=== PATIENT | female | born 1960 | race Caucasian/White ===

== ENCOUNTER 2018-09-28 00:27 | Emergency (ER) | payer MEDICAID, SELFPAY ==
[2018-09-28 00:28] VITALS: BP 129/87; PULSE 79; RESP 16; TEMP 36.4; O2SAT 98; BMI 23.6
--- NOTE | 2018-09-28 00:44 | ED.RN ---
PT IS INTOXICATED AND A POOR HISTORIAN.
--- NOTE | 2018-09-28 00:45 | CT_ITS ---
STUDY: CT CERVICAL SPINE WITHOUT CONTRAST REASON FOR EXAM: Female, 58 years old. Neck pain after fall. RADIATION DOSAGE (If Supplied By Facility): CTDIvol = ( 12.45 ) mGy, DLP = ( 258.92 ) mGycm TECHNIQUE: High resolution transaxial imaging was performed without contrast material. Sagittal and coronal images were reconstructed. Individualized dose optimization techniques were used for this CT. COMPARISON: None FINDINGS: Normal craniovertebral junction. Normal anterior atlantoaxial articulation. Normal odontoid process. Normal cervical lordosis. Normal vertebral bodies and posterior osseous elements. C2-3: Normal endplates. Normal disc height and morphology. Normal central canal and intervertebral neuroforamina. C3-4: Normal endplates. Normal disc height and morphology. Normal central canal and intervertebral neuroforamina. C4-5: Normal endplates. Normal disc height and morphology. Normal central canal and intervertebral neuroforamina. C5-6: Normal endplates. Normal disc height and morphology. Normal central canal. There is moderate narrowing of the left neural foramen secondary to uncovertebral facet joint arthropathy. The right neural foramen is patent. C6-7: Normal endplates. Normal disc height and morphology. Normal central canal and intervertebral neuroforamina. C7-T1: Normal endplates. Normal disc height and morphology. Normal central canal and intervertebral neuroforamina. Normal visualized soft tissue structures. CT/Spine Cervical without Contras IMPRESSION: No CT evidence of acute compression or displaced fracture. Electronically Signed: Sherie Calero MD at 2:32 EDT , Service support ,
--- NOTE | 2018-09-28 00:45 | CT_ITS ---
STUDY: CT BRAIN WITHOUT CONTRAST REASON FOR EXAM: Female, 58 years old. Trauma RADIATION DOSAGE (If Supplied By Facility): CTDIvol = ( 44.99 ) mGy, DLP = ( 762.36 ) mGycm TECHNIQUE: Transaxial CT imaging of the brain was performed without administration of intravenous contrast material. Individualized dose optimization techniques were used for this CT. COMPARISON: No relevant priors. FINDINGS: Left posterior scalp soft tissue swelling/hematoma. Carotid artery calcifications. Normal calvarium. There is mild cerebral atrophy with widening of the extra-axial spaces and ventricular dilatation. Normal white matter tracts of the cerebral hemispheres. Normal basal ganglia and thalami. Normal brainstem. Normal cerebellum. There is no intracranial hemorrhage. There are no findings of an acute ischemic infarction. Normal visualized paranasal sinuses. CT/Brain/Head without Contrast IMPRESSION: Chronic involutional changes of the brain. Posterior left scalp soft tissue swelling/hematoma. Electronically Signed: Jace Ferro, at 2:14 EDT Tel , Service support ,
[2018-09-28] MEDS: Ondansetron ODT 4 MG Tablet PO (01:15)
[2018-09-28 02:36] VITALS: BP 122/67; PULSE 67; RESP 14; O2SAT 97
--- NOTE | 2018-09-28 02:43 | ED.DCSUM_ITS ---
- ER Visit Summary Date of Service: 09/28/18 Chief Complaint: Fall History of Present Illness: The patient is a 58 F who presents after a fall. This occurred about 45 minutes prior to presentation. She was intoxicated. She hit the left side of her head. She currently complains of pain where she hit her head and neck and a little bit in both shoulders. She is not anticoagulated. There is no loss of consciousness. She is not amnestic. Physical Examination: Afebrile vitals unremarkable There is some soft tissue swelling of the left scalp in the occipital region Patient does have some spinal tenderness no step-off Heart regular rate and rhythm Lungs clear Abdomen soft Active full range of motion x4 GCS of 15 Test Results: CT the head shows chronic changes. CT the cervical spine shows no fracture. Emergency Department Course and Treatment: Patient did have some vomiting here and was given a Zofran ODT. Imaging as above is negative. Patient will be discharged with sober visitor. Treatment Plan: [] Disposition: Discharge Impression: Closed head injury Neck sprain Alcohol intoxication This note was generated with [employer] dictation software. It may contain incorrect words, spelling, and punctuation that were not noted in review of the chart prior to signing ED Disposition - Plan for ED Patient: Referrals: [facility] Doctor,Out of [Primary Care Provider] -
--- NOTE | 2018-09-28 02:45 | DCINST.ED_ITS ---
ED Disposition - Plan for ED Patient: Instructions: HEAD INJURY, No Wake-Up (Adult), Neck Sprain/Strain, Alcohol Intoxication Referrals: [facility] Doctor,Out of [Primary Care Provider] -
--- NOTE | 2018-09-28 02:49 | ED.RN ---
CALLED SISTER CARMELINA CAMPBELL [phone] TO PICK PT UP
[2018-09-28 03:14] VITALS: BP 131/76; PULSE 83; RESP 14; O2SAT 99
== END 2018-09-28 03:14 | disposition home or self-care (01) ==
LOC: ED 01:21
PROVIDERS: Emergency Provider Emergency Medicine
DX: S09.90XA Unspecified injury of head, initial encounter (principal); S13.9XXA Sprain of joints and ligaments of unspecified parts of neck, initial encounter; F10.129 Alcohol abuse with intoxication, unspecified; W18.30XA Fall on same level, unspecified, initial encounter; Y93.89 Activity, other specified; Y92.89 Other specified places as the place of occurrence of the external cause; Y99.8 Other external cause status
CPT/HCPCS: 70450; 72125; 99284; A4216